=== PATIENT | female | born 1990 | race Two or more races ===

== ENCOUNTER 2016-10-22 17:00 | Emergency (ER) | payer BC ==
[2016-10-22 17:11] VITALS: RESP 16; TEMP 98.8; O2SAT 97
--- NOTE | 2016-10-22 18:11 | EDPHY ---
H & P Time Seen by Provider: 10/22/16 17:44 HPI/ROS: CHIEF COMPLAINT: Seizure HISTORY OF PRESENT ILLNESS: Patient is a 25-year-old with a history of epilepsy who presents to the emergency department after having a seizure. The patient states this is her 3rd seizure. She was diagnosed with epilepsy via EEG. She takes Trileptal daily. She missed her dose this morning. She went on a long hike and return home. When she laid in bed she had a seizure. She did not follow better sustained trauma. She states her past 2 seizures of also occurred after physical activity and then rash. She had a mild headache post seizure. She also felt mildly short of breath. She has had no cough. No chills. She denies visual change in her left eye. She is blind in her right eye. She has no neck pain. No other complaints. REVIEW OF SYSTEMS: My complete review of systems is negative except as mentioned in the HPI. Past Medical/Surgical History: Includes epilepsy, retinal tumor Past surgical history: Benign retinal tumor removal Social history: The patient does not smoke use alcohol. 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 Smoking Status: Never smoked Physical Exam: Vitals noted GENERAL: Well-appearing, in no acute distress, alert. HEENT: Eyes normal to inspection, right pupil is not reactive to light. Left pupil reacts normally. Normal pharynx, no signs of dehydration. Patient has a 0.5 cm laceration on her tongue. This does not need suture repair. NECK: No thyromegaly, no lymphadenopathy, supple. RESPIRATORY: Clear to auscultation bilaterally, no rales, rhonchi or wheezing. CVS: Regular rate and rhythm, no rubs, murmurs, or gallops. ABDOMEN: Soft, nontender, nondistended, no organomegaly. BACK: Normal to inspection, no CVA tenderness. SKIN: Normal color, no rash, warm, dry. No pallor. EXTREMITIES: No pedal edema, no calf tenderness, no Homans sign or cords, no joint swelling. NEURO/PSYCH: Higher functions: Alert and Oriented x3. Normal speech and cognition. Normal mood and affect. Cranial nerves: Normal as tested. Cerebellar: Normal as tested. Good finger to nose, good [id number], normal gait. Peripheral exam: Normal motor exam. Normal sensation. Normal reflexes. Constitutional: Initial Vital Signs Temperature (C) 37.1 C 10/22/16 17:05 Heart Rate 83 10/22/16 17:05 Respiratory Rate 16 10/22/16 17:05 Blood Pressure 138/85 H 10/22/16 17:05 O2 Sat (%) 97 10/22/16 17:05 O2 Delivery Mode Room Air Allergies/Adverse Reactions: No Known Allergies Allergy (Verified 10/22/16 17:08) Home Medications: Medication Instructions Recorded Trileptal 04/23/16 Medical Decision Making ED Course/Re-evaluation: In the emergency department I discussed possible etiologies with the patient. She appears well on my exam. I do not feel she needs imaging. She will be observed in the emergency department rechecked. She feels comfortable with this plan. I doubt electrolyte abnormality or the need for laboratory studies. 1900: When rechecked the patient. She stated she was feeling fatigued but had no shortness of breath or other complaints. She stated that her neurologist from [place] was concerned about her low sodium. She has a prescription from 06/16 to have sodium, comprehensive metabolic panel and liver panel ordered. She requested that these be ordered in the emergency department. Patient was noted to have a low sodium 127. CBC was unremarkable. I discussed the results with the patient. I answered all her questions. She is aware that she needs close follow-up with the primary care physician or neurologist to recheck her sodium. She is given contact information for both. She will return to the emergency department with worsening symptoms. Differential Diagnosis: My differential includes but is not limited to epilepsy, seizure, electrolyte abnormality, sugar abnormality, trauma - Data Points Laboratory Results: Laboratory Results 10/22/16 16:30 10/22/16 16:30 10/22/16 10/22/16 16:30 16:30 WBC 6.40 10^3/uL 10^3/uL (3.80-9.50) RBC 4.55 10^6/uL 10^6/uL (4.18-5.33) Hgb 14.6 g/dL g/dL (12.6-16.3) Hct 40.6 % % (38.0-47.0) MCV 89.2 fL fL (81.5-99.8) MCH 32.1 pg pg (27.9-34.1) MCHC 36.0 g/dL g/dL (32.4-36.7) RDW 11.9 % % (11.5-15.2) Plt Count 252 10^3/uL 10^3/uL (150-400) MPV 10.4 fL fL (8.7-11.7) Neut % (Auto) 72.1 % % (39.3-74.2) Lymph % (Auto) 18.1 % % (15.0-45.0) Jay % (Auto) 8.8 % % (4.5-13.0) Eos % (Auto) 0.2 % L % (0.6-7.6) Baso % (Auto) 0.3 % % (0.3-1.7) Nucleat RBC Rel Count 0.0 % % (0.0-0.2) Absolute Neuts (auto) 4.62 10^3/uL 10^3/uL (1.70-6.50) Absolute Lymphs (auto) 1.16 10^3/uL 10^3/uL (1.00-3.00) Absolute Monos (auto) 0.56 10^3/uL 10^3/uL (0.30-0.80) Absolute Eos (auto) 0.01 10^3/uL L 10^3/uL (0.03-0.40) Absolute Basos (auto) 0.02 10^3/uL 10^3/uL (0.02-0.10) Absolute Nucleated RBC 0.00 10^3/uL 10^3/uL (0-0.01) Immature Gran % 0.5 % % (0.0-1.1) Immature Gran # 0.03 10^3/uL 10^3/uL (0.00-0.10) Sodium 127 mEq/L L mEq/L (134-144) Potassium 4.3 mEq/L mEq/L (3.5-5.2) Chloride 93 mEq/L L mEq/L (97-110) Carbon Dioxide 24 mEq/l mEq/l (22-31) Anion Gap 10 mEq/L mEq/L (8-16) BUN 12 mg/dL mg/dL (7-23) Creatinine 0.6 mg/dL mg/dL (0.6-1.0) Estimated GFR > 60 Glucose 100 mg/dL mg/dL (70-100) Calcium 9.7 mg/dL mg/dL (8.5-10.4) Total Bilirubin 0.6 mg/dL mg/dL (0.1-1.4) Conjugated Bilirubin 0.2 mg/dL mg/dL (0.0-0.5) Unconjugated Bilirubin 0.4 mg/dL mg/dL (0.0-1.1) AST 35 IU/L IU/L (14-46) ALT 36 IU/L IU/L (9-52) Alkaline Phosphatase 61 IU/L IU/L (38-126) Total Protein 8.0 g/dL g/dL (6.3-8.2) Albumin 4.8 g/dL g/dL (3.5-5.0) Triglycerides 60 mg/dL mg/dL (35-135) Cholesterol 169 mg/dL mg/dL (140-200) Cholesterol Risk Factr 0.4 (0.2-1.0) LDL Cholesterol, Calc 68 mg/dL mg/dL (60-100) LDL Risk Factor 0.4 (0.2-1.0) VLDL Cholesterol 12 mg/dL mg/dL (8-25) Non-HDL Cholesterol 80 mg/dL L mg/dL (90-129) HDL Cholesterol 89 mg/dL H mg/dL (40-75) LDL/HDL Ratio 0.76 RATIO L RATIO (1.00-3.22) Cholesterol/HDL Ratio 1.90 RATIO RATIO (1.00-4.44) Departure - Departure Disposition: Home, Routine, Self-Care Clinical Impression: Seizure disorder, Hyponatremia Condition: Good Instructions: Epilepsy (ED) Additional Instructions: Return with increasing headache, neck pain, weakness, numbness, visual change, fever or any other concerns. Your sodium is low at 127. You need close follow- up to recheck. Referrals: JASPER BILL V [Other] - As per Instructions Valentine Kate MD [Medical Doctor] - As per Instructions Ihsan Barragan MD [Medical Doctor] - 1-2 days without fail
[2016-10-22 19:15] LABS: % IMMATURE GRANULYOCYTES 0.5 % (0.0-1.1); ABSOLUTE IMMATURE GRANULOCYTES 0.03 10^3/uL (0.00-0.10); ADD DIFF? NO; ADD MORPH? NO; ADD SCAN? NO; ATYPICAL LYMPHOCYTE FLAG 10 (0-99); FRAGMENT RBC FLAG 0 (0-99); HEMATOCRIT 40.6 % (38.0-47.0); HEMOGLOBIN 14.6 g/dL (12.6-16.3); LEFT SHIFT FLG 0 (0-99); LIPEMIA HEMOLYSIS FLAG 90 (0-99); MEAN CELL HEMOGLOBIN 32.1 pg (27.9-34.1); MEAN CELL VOLUME 89.2 fL (81.5-99.8); MEAN PLATELET VOLUME 10.4 fL (8.7-11.7); PLATELET CLUMPS FLAG 10 (0-99); PLATELET COUNT 252 10^3/uL (150-400); RED BLOOD CELL COUNT 4.55 10^6/uL (4.18-5.33); RED CELL DISTRIBUTION WIDTH 11.9 % (11.5-15.2)
[2016-10-22 19:21] LABS: ALANINE AMINOTRANSFERASE 36 IU/L (9-52); ALBUMIN 4.8 g/dL (3.5-5.0); ALKALINE PHOSPHATASE 61 IU/L (38-126); ANION GAP 10 mEq/L (8-16); ASPARTATE AMINOTRANSFERASE 35 IU/L (14-46); BILIRUBIN,TOTAL 0.6 mg/dL (0.1-1.4); BILIRUBIN-CONJUGATED 0.2 mg/dL (0.0-0.5); BILIRUBIN-UNCONJUGATED 0.4 mg/dL (0.0-1.1); CALCIUM 9.7 mg/dL (8.5-10.4); CARBON DIOXIDE 24 mEq/l (22-31); CHLORIDE 93 mEq/L (97-110); CHOLESTEROL 169 mg/dL (140-200); CREATININE 0.6 mg/dL (0.6-1.0); GLOMERULAR FILTRATION RATE > 60; GLUCOSE 100 mg/dL (70-100); HIGH DENSITY LIPOPROTEIN 89 mg/dL (40-75); LDL/HDL RATIO 0.76 RATIO (1.00-3.22); LOW DENSITY LIPOPROTEIN 68 mg/dL (60-100); NON-HIGH DENSITY LIPOPROTEIN 80 mg/dL (90-129); POTASSIUM 4.3 mEq/L (3.5-5.2); SODIUM 127 mEq/L (134-144); TRIGLYCERIDE 60 mg/dL (35-135); VERY LOW DENSITY LIPOPROTEINS 12 mg/dL (8-25)
[2016-10-22 20:47] VITALS: BP 116/59; PULSE 68
== END 2016-10-22 20:45 | disposition home or self-care (01) ==
DX: G40.909 Epilepsy, unspecified, not intractable, without status epilepticus (principal); E87.1 Hypo-osmolality and hyponatremia